=== PATIENT | male | born 1940 | race Caucasian/White ===

== ENCOUNTER 2017-04-21 06:48 | Day surgery (SDC) | payer MEDICARE, OTHER ==
[~2017-04-21] VITALS: Ht 172.7 cm; Wt 94.0 kg
[~2017-04-21 06:48] MED LIST: AMIO200 PO; ANTACID CALCIU215 MG PO; Afrin15 ML; Amiodarone HCl200 MG PO; Amoxicillin500 MG PO; Aspir 8181 MG PO; Ayr Saline Na14.1 GM; CALCA500CH PO; CLOP75 PO; ENTRESTO 24 MG1 EACH PO; FENO160 PO; FURO20 PO; Garlic1000 MG PO; K-TAB ER20 MEQ PO; LEVSOD100 PO; LEVSOD125 PO; LEVSOD150 PO; LEVSOD75 PO; LISI5 PO; LOSARTAN-HCTZ PO; MICROZIDE12.5 MG PO; Micro-K10 MEQ PO; NEBI10 PO; NEBI5 PO; NITR.4SL SL; OMEPRAZOLE MAGN20 MG PO; POTCHL20ER PO; TUMS DUAL ACTI1 EACH PO; VITAMIN C500 M1 PO; Vitamin C100 M1 PO; XARELTO10 MG PO; XARELTO15 MG PO
[2017-04-21] MEDS ORDERED: CEPH500 PO (13:25)
[2017-04-21] MEDS ORDERED: HYDR1TAB94 PO (13:26)
== END 2017-04-21 14:00 | disposition home or self-care (01) ==
LOC: MHTC 06:48
PROC: 0JPT0PZ Removal of Cardiac Rhythm Related Device from Trunk Subcutaneous Tissue and Fascia, Open Approach (ICD-10-PCS; principal; 2017-04-21)
PROC: 0JH608Z Insertion of Defibrillator Generator into Chest Subcutaneous Tissue and Fascia, Open Approach (ICD-10-PCS; principal; 2017-04-21)
PROC: 3E0102A Introduction of Anti-Infective Envelope into Subcutaneous Tissue, Open Approach (ICD-10-PCS; principal; 2017-04-21)
DX: I49.5 Sick sinus syndrome (principal); I42.0 Dilated cardiomyopathy; I44.7 Left bundle-branch block, unspecified; I11.0 Hypertensive heart disease with heart failure; I48.0 Paroxysmal atrial fibrillation; E03.9 Hypothyroidism, unspecified; G62.9 Polyneuropathy, unspecified; Z79.899 Other long term (current) drug therapy; Z79.01 Long term (current) use of anticoagulants; Z88.5 Allergy status to narcotic agent
CPT/HCPCS: 33249; 71046; 93005; 93010; 99152; 99153; C1721; C1781; C1895; J0690; J1200; J1644; J2250; J2405; J3010; J7030; J7040; Q9967

== ENCOUNTER 2018-06-08 14:12 | Day surgery (SDC) | payer MEDICARE, OTHER ==
[~2018-06-08] VITALS: Ht 172.7 cm; Wt 84.7 kg
[~2018-06-08 14:12] MED LIST changes: +CEPH500 PO; +HYDR1TAB94 PO
== END 2018-06-08 16:30 | disposition home or self-care (01) ==
LOC: ORSCSDS 14:12
PROVIDERS: Ophthalmology
PROC: 08RJ3JZ Replacement of Right Lens with Synthetic Substitute, Percutaneous Approach (ICD-10-PCS; principal; 2018-06-08 16:00)
DX: H25.11 Age-related nuclear cataract, right eye (principal); I10 Essential (primary) hypertension; Z79.82 Long term (current) use of aspirin; Z95.0 Presence of cardiac pacemaker; E78.5 Hyperlipidemia, unspecified; I48.0 Paroxysmal atrial fibrillation; E11.9 Type 2 diabetes mellitus without complications; F17.210 Nicotine dependence, cigarettes, uncomplicated; Z79.01 Long term (current) use of anticoagulants; Z79.899 Other long term (current) drug therapy
CPT/HCPCS: J2001; J2250; J3010; J7120; V2632

== ENCOUNTER 2018-07-06 14:03 | Day surgery (SDC) | payer MEDICARE, OTHER ==
[~2018-07-06] VITALS: Ht 167.6 cm; Wt 82.6 kg
== END 2018-07-06 15:30 | disposition home or self-care (01) ==
LOC: ORSCSDS 14:03
PROVIDERS: Ophthalmology
PROC: 08RK3JZ Replacement of Left Lens with Synthetic Substitute, Percutaneous Approach (ICD-10-PCS; principal; 2018-07-06 15:30)
DX: H25.12 Age-related nuclear cataract, left eye (principal); I10 Essential (primary) hypertension; E03.9 Hypothyroidism, unspecified; E78.00 Pure hypercholesterolemia, unspecified; E11.36 Type 2 diabetes mellitus with diabetic cataract; E78.5 Hyperlipidemia, unspecified; I25.10 Atherosclerotic heart disease of native coronary artery without angina pectoris; I48.0 Paroxysmal atrial fibrillation; I42.9 Cardiomyopathy, unspecified; Z95.0 Presence of cardiac pacemaker; Z79.01 Long term (current) use of anticoagulants; Z79.82 Long term (current) use of aspirin; Z79.899 Other long term (current) drug therapy
CPT/HCPCS: J2001; J2250; J3010; V2632

== ENCOUNTER → 2018-11-24 | Outpatient (CLI) | payer MEDICARE, OTHER | END | disposition home or self-care (01) | LOC: LAB SHORT 08:12 → LAB 08:12 → LAB FUT 11-23 16:45 | PROVIDERS: Internal Medicine Cardiovascular Disease | DX: I42.9 Cardiomyopathy, unspecified (principal) | CPT/HCPCS: 81050; 84156 ==

== ENCOUNTER 2019-03-08 10:08 | Emergency (ER) | payer MEDICARE, OTHER ==
[~2019-03-08] VITALS: Ht 175.3 cm; Wt 72.6 kg
[2019-03-08 10:39] LABS: BASOPHILS ABSOLUTE AUTO 0.04 K/mm3 (0.00-0.23); BASOPHILS PERCENT AUTO 1 % (0-2); EOSINOPHILS ABSOLUTE AUTO 0.17 K/mm3 (0.00-0.68); EOSINOPHILS PERCENT AUTO 3 % (0-6); Hematocrit 42.3 % (37.0-53.0); Hemoglobin 13.5 g/dL (13.5-17.5); IMMATURE GRAN ABSOLUTE AUTO 0.02 K/mm3 (0.00-0.10); IMMATURE GRAN PERCENT AUTO 0 % (0-1); LYMPHOCYTES ABSOLUTE AUTO 1.21 K/mm3 (0.84-5.20); LYMPHOCYTES PERCENT AUTO 19 % (21-46); MONOCYTES ABSOLUTE AUTO 0.43 K/mm3 (0.16-1.47); MONOCYTES PERCENT AUTO 7 % (4-13); Mean Corpuscular HGB Conc 31.9 g/dL (31.5-36.5); Mean Corpuscular Volume 97 fL (80-100); NEUTROPHILS ABSOLUTE AUTO 4.49 K/mm3 (1.96-9.15); NEUTROPHILS PERCENT AUTO 71 % (41-73); Platelet Count 175 K/mm3 (150-400); RDW Coefficient Variation 13.6 % (11.7-14.2); RDW Standard Deviation 49.1 fL (35.1-46.3); Red Blood Cell Count 4.36 M/mm3 (4.30-5.90); White Blood Cell Count 6.36 K/mm3 (4.00-11.30)
[2019-03-08 10:52] LABS: Alanine Aminotransfer (ALT/SGP 29 U/L (12-78); Albumin, Blood 3.3 g/dL (3.4-5.0); Alk Phos 111 U/L (50-136); Anion Gap 7 mmol/L (6-16); Aspartate Aminotrans (AST/SGOT 26 U/L (12-37); Bilirubin, Total 0.6 mg/dL (0.1-1.0); Blood Urea Nitrogen 28 mg/dL (8-24); Bun/Creatinine Ratio 28.5 (12.0-20.0); CO2, Blood 25 mmol/L (21-32); Calcium, Blood 8.6 mg/dL (8.5-10.1); Chloride, Blood 110 mmol/L (98-108); Creatinine, Blood 0.98 mg/dL (0.60-1.20); Globulin, Blood 3.4 g/dL (2.2-4.0); Glomerular Filtration Rate >60 (60-); Glucose, Blood 113 mg/dL (70-99); Potassium, Blood 4.2 mmol/L (3.5-5.5); Sodium, Blood 142 mmol/L (136-145); Total Protein, Blood 6.7 g/dL (6.4-8.2)
[2019-03-08] MEDS ORDERED: Percocet 5-3251 EACH PO (13:06)
[2019-03-09] MEDS ORDERED: XARELTO15 MG PO (15:42)
== END 2019-03-08 13:32 | disposition home or self-care (01) ==
LOC: ER 10:08
PROVIDERS: Emergency Medicine
DX: S22.32XA Fracture of one rib, left side, initial encounter for closed fracture (principal); S00.83XA Contusion of other part of head, initial encounter; I10 Essential (primary) hypertension; I20.9 Angina pectoris, unspecified; I48.91 Unspecified atrial fibrillation; Z88.5 Allergy status to narcotic agent; Z79.899 Other long term (current) drug therapy; Z79.82 Long term (current) use of aspirin; Z87.891 Personal history of nicotine dependence; W18.2XXA Fall in (into) shower or empty bathtub, initial encounter
CPT/HCPCS: 36415; 70450; 71046; 80053; 84484; 85025; 93005; 93010; 99285-25

== ENCOUNTER 2019-03-08 14:50 | Observation (INO) | payer MEDICARE, OTHER ==
[~2019-03-08] VITALS: Ht 167.6 cm; Wt 73.6 kg
[~2019-03-08 14:50] MED LIST changes: +Percocet 5-3251 EACH PO
[2019-03-09 04:13] LABS: BASOPHILS PERCENT AUTO 0 % (0-2); EOSINOPHILS PERCENT AUTO 0 % (0-6); Hematocrit 43.2 % (37.0-53.0); Hemoglobin 14.1 g/dL (13.5-17.5); IMMATURE GRAN ABSOLUTE AUTO 0.03 K/mm3 (0.00-0.10); IMMATURE GRAN PERCENT AUTO 0 % (0-1); LYMPHOCYTES ABSOLUTE AUTO 0.45 K/mm3 (0.84-5.20); LYMPHOCYTES PERCENT AUTO 4 % (21-46); MONOCYTES PERCENT AUTO 4 % (4-13); Mean Corpuscular HGB 30.9 pg (26.0-34.0); Mean Corpuscular HGB Conc 32.6 g/dL (31.5-36.5); Mean Corpuscular Volume 95 fL (80-100); Mean Platelet Volume 9.7 fL (9.1-12.4); NEUTROPHILS ABSOLUTE AUTO 10.38 K/mm3 (1.96-9.15); NEUTROPHILS PERCENT AUTO 92 % (41-73); Platelet Count 181 K/mm3 (150-400); RDW Coefficient Variation 13.8 % (11.7-14.2); RDW Standard Deviation 48.2 fL (35.1-46.3); Red Blood Cell Count 4.56 M/mm3 (4.30-5.90); White Blood Cell Count 11.26 K/mm3 (4.00-11.30)
[2019-03-09 04:29] LABS: Alanine Aminotransfer (ALT/SGP 41 U/L (12-78); Albumin, Blood 3.6 g/dL (3.4-5.0); Alk Phos 126 U/L (50-136); Anion Gap 7 mmol/L (6-16); Aspartate Aminotrans (AST/SGOT 36 U/L (12-37); Bilirubin, Total 0.7 mg/dL (0.1-1.0); Blood Urea Nitrogen 31 mg/dL (8-24); Bun/Creatinine Ratio 35.6 (12.0-20.0); CO2, Blood 26 mmol/L (21-32); Calcium, Blood 9.2 mg/dL (8.5-10.1); Chloride, Blood 109 mmol/L (98-108); Creatinine, Blood 0.87 mg/dL (0.60-1.20); Globulin, Blood 3.6 g/dL (2.2-4.0); Glomerular Filtration Rate >60 (60-); Glucose, Blood 139 mg/dL (70-99); Potassium, Blood 4.3 mmol/L (3.5-5.5); Sodium, Blood 142 mmol/L (136-145); Total Protein, Blood 7.2 g/dL (6.4-8.2)
--- NOTE | 2019-03-09 06:37 | NUR ---
received report from er via day nurse, fx rib, abrasion on L cheek/neck, scrape on L calf from fall, pt denies multiple falls at home confirms, when asked to raise arms for assessment only raises r arm, when asked to raise l arm he does raise it and denies pain or numbness, slight droop to l side of face and slurred, soft, speech, both eyes are brisk and equal, moves both legs equally well, self transfered from gurney to bed with only standby assist, currently on 2L via nc, both IV's saline locked, family in room, a+o, cooperative with care, no further s/sx of cva noted during shift, will continue to monitor and treat until share bsr with day staff and pt
--- NOTE | 2019-03-09 12:55 | NUR ---
UPDATE PT ALERT AND ORIENTED. VS STABLE. O2 SATS REMAIN ABOVE 90% ON 2L NC. BP STABLE. TELEMETRY HAS BEEN DC'D. PT WORKING [facility] PT/OT/ST. STATUS CHANGED TO MEDICAL. REPORT CALLED TO MEDICAL FLOOR RN. PT TO BE TAKEN UP BY WHEELCHAIR.
[2019-03-09] MEDS ORDERED: XARELTO15 MG PO (15:42)
--- NOTE | 2019-03-09 16:46 | NUR ---
PATIENT WAS TRANSFERRED OFF THE UNIT IN A WHEELCHAIR BY THE RN. THE PATIENT'S AND FAMILY FRIEND PICKED UP THE PATIENT AT THE ER ENTERANCE IN THEIR VEHICLE.
== END 2019-03-09 16:22 | disposition home health service (06) ==
LOC: ER 14:50 → PCU 18:58 → MEDS 18:58 → PCU 18:58 → MEDS 03-09 13:02
PROVIDERS: ADMIT Internal Medicine
DX: I63.9 Cerebral infarction, unspecified (principal); G81.04 Flaccid hemiplegia affecting left nondominant side; R29.810 Facial weakness; R47.9 Unspecified speech disturbances; S22.32XA Fracture of one rib, left side, initial encounter for closed fracture; I11.0 Hypertensive heart disease with heart failure; I50.22 Chronic systolic (congestive) heart failure; M19.90 Unspecified osteoarthritis, unspecified site; E78.5 Hyperlipidemia, unspecified; I48.0 Paroxysmal atrial fibrillation; E03.9 Hypothyroidism, unspecified; D47.2 Monoclonal gammopathy; Z98.1 Arthrodesis status; Z95.810 Presence of automatic (implantable) cardiac defibrillator; Z79.02 Long term (current) use of antithrombotics/antiplatelets; Z79.82 Long term (current) use of aspirin; Z79.01 Long term (current) use of anticoagulants; Z79.899 Other long term (current) drug therapy; Z88.5 Allergy status to narcotic agent; Z87.891 Personal history of nicotine dependence; Z66 Do not resuscitate; W01.0XXA Fall on same level from slipping, tripping and stumbling without subsequent striking against object, initial encounter; Y92.012 Bathroom of single-family (private) house as the place of occurrence of the external cause
CPT/HCPCS: 36415; 70496; 70498; 80053; 85025; 92610; 96374; 96375; 96376; 97110; 97116; 97163; 97166; 99285-25; C9113; G0378; J1170; J1644; J2405; J3010; Q9967

== ENCOUNTER 2019-03-20 16:14 | Emergency (ER) | payer MEDICARE, OTHER ==
[~2019-03-20] VITALS: Ht 172.7 cm; Wt 70.3 kg
[2019-03-20 16:38] LABS: BASOPHILS ABSOLUTE AUTO 0.03 K/mm3 (0.00-0.23); BASOPHILS PERCENT AUTO 0 % (0-2); EOSINOPHILS ABSOLUTE AUTO 0.03 K/mm3 (0.00-0.68); EOSINOPHILS PERCENT AUTO 0 % (0-6); Hematocrit 42.7 % (37.0-53.0); Hemoglobin 14.2 g/dL (13.5-17.5); IMMATURE GRAN ABSOLUTE AUTO 0.04 K/mm3 (0.00-0.10); IMMATURE GRAN PERCENT AUTO 1 % (0-1); LYMPHOCYTES ABSOLUTE AUTO 1.08 K/mm3 (0.84-5.20); LYMPHOCYTES PERCENT AUTO 13 % (21-46); MONOCYTES ABSOLUTE AUTO 0.44 K/mm3 (0.16-1.47); MONOCYTES PERCENT AUTO 5 % (4-13); Mean Corpuscular HGB 31.2 pg (26.0-34.0); Mean Corpuscular HGB Conc 33.3 g/dL (31.5-36.5); Mean Corpuscular Volume 94 fL (80-100); Mean Platelet Volume 9.9 fL (9.1-12.4); NEUTROPHILS ABSOLUTE AUTO 6.88 K/mm3 (1.96-9.15); NEUTROPHILS PERCENT AUTO 81 % (41-73); Platelet Count 237 K/mm3 (150-400); RDW Coefficient Variation 13.5 % (11.7-14.2); RDW Standard Deviation 46.6 fL (35.1-46.3); Red Blood Cell Count 4.55 M/mm3 (4.30-5.90)
[2019-03-20 17:00] LABS: Albumin, Blood 3.5 g/dL (3.4-5.0); Albumin/Globulin Ratio 1.1 (0.8-1.8); Bilirubin, Total 0.7 mg/dL (0.1-1.0); Bun/Creatinine Ratio 26.5 (12.0-20.0); Calcium, Blood 9.4 mg/dL (8.5-10.1); Creatinine, Blood 1.7 mg/dL (0.60-1.20); Globulin, Blood 3.3 g/dL (2.2-4.0); Total Protein, Blood 6.8 g/dL (6.4-8.2)
[2019-03-20 17:33] LABS: Troponin I <0.015 ng/mL (0.000-0.040)
[2019-03-20] MEDS ORDERED: CLOP75 PO (18:12)
[2019-03-20] MEDS ORDERED: ASPI81CH PO (18:12)
[2019-03-20 18:34] LABS: Source, Urine Voided
[2019-03-20 18:36] LABS: Appearance, Urine Clear (Clear); Bilirubin, Urine Neg (Neg); Blood, Urine Neg (Neg); Color, Urine Yellow (P-Yellow); Glucose Qualitative, Urine Neg (Neg); Ketones, Urine 1+ (Neg); Leukocyte Esterase, Urine Neg (Neg); Nitrite, Urine Neg (Neg); Protein, Urine 1+ (Neg); Specific Gravity, Urine 1.015 (1.003-1.022); Urobilinogen, Urine NORM (Normal)
[2019-03-20] MEDS ORDERED: Cardizem CD 12120 MG PO (19:09)
== END 2019-03-20 19:45 | disposition home or self-care (01) ==
LOC: ER 16:14
PROVIDERS: Emergency Medicine
DX: I48.91 Unspecified atrial fibrillation (principal); Z88.5 Allergy status to narcotic agent; Z79.899 Other long term (current) drug therapy; I10 Essential (primary) hypertension; Z86.73 Personal history of transient ischemic attack (TIA), and cerebral infarction without residual deficits; Z87.891 Personal history of nicotine dependence
CPT/HCPCS: 70450; 80053; 84443; 84484; 85025; 93005; 93010; 96374; 99284-25

== ENCOUNTER 2019-08-09 14:57 | Inpatient (IN) | payer MEDICARE, OTHER ==
[~2019-08-09] VITALS: Ht 172.7 cm; Wt 80.0 kg
[~2019-08-09 14:57] MED LIST changes: +ASPI81CH PO; +Cardizem CD 12120 MG PO; -ENTRESTO 24 MG1 EACH PO; -K-TAB ER20 MEQ PO; -LEVSOD100 PO; -OMEPRAZOLE MAGN20 MG PO
[2019-08-09] MEDS ORDERED: OMEPRAZOLE MAGN20 MG PO (16:59)
[2019-08-09] MEDS ORDERED: LEVSOD100 PO (17:00)
[2019-08-09] MEDS ORDERED: POTA10T PO (17:00)
[2019-08-09] MEDS ORDERED: XARELTO15 MG PO (17:01)
[2019-08-09] MEDS ORDERED: LEVSOD150 PO (17:02)
[2019-08-09] MEDS ORDERED: NITR.4SL SL (17:03)
[2019-08-09] MEDS ORDERED: Bystolic2.5 MG PO (17:16)
[2019-08-09] MEDS ORDERED: ENTRESTO 49 MG1 EACH PO (17:18)
[2019-08-09] MEDS ORDERED: TUMS500 MG PO (17:49)
--- NOTE | 2019-08-10 00:24 | NUR ---
CHANGE IN RHYTHM MANAGER PROCESS IMPROVEMENT CALLED STATED PT HAVING MORE FREQUENT PVCS, TRIGEM, AND BIGEM WITH FEW BEAT RUN OF VTACH. PT WAS SLEEPING, WAKES EASILY CHECKED VS AND PT IS FEBRILE. DENIES ANY CHEST PAIN BUT STATES HAVING CHILLS. MEDICATED WITH TYLENOL. CALLED MUNA-SHE STATES WILL PUT IN ORDERS FOR BLOOD CX, LACTIC AND POSSIBLE ABX.
[2019-08-10 01:30] LABS: BASOPHILS ABSOLUTE AUTO 0.02 K/mm3 (0.00-0.23); BASOPHILS PERCENT AUTO 0 % (0-2); EOSINOPHILS ABSOLUTE AUTO 0.01 K/mm3 (0.00-0.68); EOSINOPHILS PERCENT AUTO 0 % (0-6); Hematocrit 45.2 % (37.0-53.0); Hemoglobin 14.6 g/dL (13.5-17.5); IMMATURE GRAN ABSOLUTE AUTO 0.05 K/mm3 (0.00-0.10); IMMATURE GRAN PERCENT AUTO 0 % (0-1); LYMPHOCYTES ABSOLUTE AUTO 0.48 K/mm3 (0.84-5.20); LYMPHOCYTES PERCENT AUTO 4 % (21-46); MONOCYTES ABSOLUTE AUTO 0.15 K/mm3 (0.16-1.47); MONOCYTES PERCENT AUTO 1 % (4-13); Mean Corpuscular HGB 30.9 pg (26.0-34.0); Mean Corpuscular HGB Conc 32.3 g/dL (31.5-36.5); Mean Corpuscular Volume 96 fL (80-100); Mean Platelet Volume 9.7 fL (9.1-12.4); NEUTROPHILS ABSOLUTE AUTO 10.78 K/mm3 (1.96-9.15); NEUTROPHILS PERCENT AUTO 94 % (41-73); Platelet Count 157 K/mm3 (150-400); RDW Coefficient Variation 13.6 % (11.7-14.2); RDW Standard Deviation 47.9 fL (35.1-46.3); Red Blood Cell Count 4.73 M/mm3 (4.30-5.90); White Blood Cell Count 11.49 K/mm3 (4.00-11.30)
[2019-08-10 01:47] LABS: Anion Gap 3 mmol/L (6-16); Blood Urea Nitrogen 17 mg/dL (8-24); Bun/Creatinine Ratio 19.1 (12.0-20.0); CO2, Blood 28 mmol/L (21-32); Calcium, Blood 8.6 mg/dL (8.5-10.1); Chloride, Blood 107 mmol/L (98-108); Creatinine, Blood 0.89 mg/dL (0.60-1.20); Glomerular Filtration Rate >60 (60-); Glucose, Blood 113 mg/dL (70-99); Potassium, Blood 4.4 mmol/L (3.5-5.5); Sodium, Blood 138 mmol/L (136-145)
--- NOTE | 2019-08-10 01:54 | NUR ---
RHYTHM COATING MIXER SUPERVISOR CALLED STAT[facility] HAVING A WIDE QRS AND CONT TO HAVE FREQ PVC'S. PT IS SLEEPING, EASY TO WAKE, STATES FEELING WARM NOW, T-101.9. WAITING FOR LACTIC RESULTS AND WILL CALL DR. DANIELSON.
[2019-08-10 02:07] LABS: Magnesium, Blood 1.8 mg/dL (1.6-2.4)
--- NOTE | 2019-08-10 02:08 | NUR ---
SPOKE WITH , STARTED ABX AND ADDED MAG. ASSEMBLER SHOW MOTOR DID CALL AND STATE SOME OF THE ODD RHYTHMS WERE PACER SPIKES.
--- NOTE | 2019-08-10 02:35 | NUR ---
PT HAD AN EPISODE OF CONFUSION. PULLED OFF TELE AND FOLDING HIS BLANKETS. BUT STATES HE IS NOW ORIENTED AND KNOWS WHERE HE IS. STATES FEELING BETTER T99.5. WILL PLACE BED ALARM ON. IV ABX STARTED.
--- NOTE | 2019-08-10 03:35 | NUR ---
PT WAS A NEW ADMIT AT BEGINNING OF MY SHIFT. PT SPIKED TEMP AND HAD CRITICAL LACTIC, ALSO WITH FREQUENT PVC'S. DURING THIS TIME PT BECAME CONFUSED. PT NOW IS ORIENTED AND KNOWS HE WAS CONFUSED. PT WAS STARTED ON IV ABX. PLAN FOR SX ON TUESDAY FOR MIKY CARTER. BED ALARM IS ON, CALL LIGHT IN REACH. WILL CONT TO MONITOR FOR CONFUSION.
--- NOTE | 2019-08-10 07:36 | NUR ---
SPOKE WITH DR KENDRICK RE: PT CONDITION. RECD ORDER TO GIVE COREG, IV BOLUS AND LACTIC ACID.
--- NOTE | 2019-08-10 08:56 | NUR ---
BOLUS COMPLETED. SR @ 71. BP IMPROVED. NO C/O.
--- NOTE | 2019-08-10 13:44 | NUR ---
DR KENDRICK REVIEWED PATIENTS TELE STATUS, HE LEFT MESSAGE FOR CARDIOLOGY CONSULT. PATIENT BP STABLE, ASYMPTOMATIC. DENIES SOB, CP,CHANGES.
--- NOTE | 2019-08-10 18:20 | NUR ---
NOTIFIED BY LACE PAPER MACHINE OPERATOR, PT IN AFIB. ASYMPTOMATIC. DR KENDRICK NOTIFIED, NO NEW ORDERS. PATIENT TOLERATING DIET W/O C/O NAUSEA OR PAIN. VOIDING. CARDIOLOGY IN TO SEE. PLAN FOR OC TO OR TOMORROW,
--- NOTE | 2019-08-10 23:10 | NUR ---
PT'S NOW IN AFIB WITH HR IN 120'S, PER GLOBAL TECHNICAL WRITER. [facility] NOTIFIED; NEW ORDERS FOR 500MG LR BOLUS OBTAINED. MUNA ALSO NOTIFIED OF RECENT GRAM POSITIVE LAB RESULTS; NO NEW ORDERS CURRENT ABX IS APPROPRIATE. PT DENIES CP, SOB, OR N/V. TEMP HAS DECREASED TO 99.5, PT DENIES CHILLS. REPORTS RESTING COMFORTABLY. HAS CALL LIGHT IN REACH. WILL IMPLEMENT ORDERS AND CTM.
--- NOTE | 2019-08-10 23:22 | NUR ---
PT NOW IN NSR WITH HR AT 65 BPM, PER FOLDER AND NOTCHER. MARCIA TORO NOTIFIED. NEW ORDERS TO HOLD 500ML LR BOLUS OBTAINED, OKAY TO MAKE PRN. WILL IMPLEMENT AND CTM.
--- NOTE | 2019-08-11 04:24 | NUR ---
AFIB CHANGE PER MANAGER CABLE, PT IS NOW IN AFIB WITH HR IN 120'S. DR. TYLER NOTIFIED; NEW ORDERS FOR 5MG IV LOPRESSOR OBTAINED. PT APPEARS TO BE SLEEPING COMFORTABLY IN BED AT THIS TIME. RECENT VITALS ARE BP 113/67, SPO2 AT 94% ON RA, 12 RESP, AND T- 99.4. WILL IMPLEMENT ORDERS AND CTM.
[2019-08-11 04:43] LABS: BASOPHILS ABSOLUTE AUTO 0.05 K/mm3 (0.00-0.23); BASOPHILS PERCENT AUTO 0 % (0-2); EOSINOPHILS ABSOLUTE AUTO 0.03 K/mm3 (0.00-0.68); EOSINOPHILS PERCENT AUTO 0 % (0-6); Hematocrit 42.2 % (37.0-53.0); Hemoglobin 13.6 g/dL (13.5-17.5); IMMATURE GRAN ABSOLUTE AUTO 0.11 K/mm3 (0.00-0.10); IMMATURE GRAN PERCENT AUTO 1 % (0-1); LYMPHOCYTES ABSOLUTE AUTO 0.72 K/mm3 (0.84-5.20); LYMPHOCYTES PERCENT AUTO 6 % (21-46); MONOCYTES ABSOLUTE AUTO 0.97 K/mm3 (0.16-1.47); MONOCYTES PERCENT AUTO 8 % (4-13); Mean Corpuscular HGB 30.5 pg (26.0-34.0); Mean Corpuscular HGB Conc 32.2 g/dL (31.5-36.5); Mean Corpuscular Volume 95 fL (80-100); Mean Platelet Volume 9.8 fL (9.1-12.4); NEUTROPHILS ABSOLUTE AUTO 10.81 K/mm3 (1.96-9.15); NEUTROPHILS PERCENT AUTO 85 % (41-73); Platelet Count 140 K/mm3 (150-400); RDW Coefficient Variation 13.7 % (11.7-14.2); RDW Standard Deviation 48.1 fL (35.1-46.3); Red Blood Cell Count 4.46 M/mm3 (4.30-5.90); White Blood Cell Count 12.69 K/mm3 (4.00-11.30)
[2019-08-11 04:59] LABS: Anion Gap 3 mmol/L (6-16); Blood Urea Nitrogen 18 mg/dL (8-24); Bun/Creatinine Ratio 19.4 (12.0-20.0); CO2, Blood 27 mmol/L (21-32); Calcium, Blood 8.2 mg/dL (8.5-10.1); Chloride, Blood 108 mmol/L (98-108); Creatinine, Blood 0.93 mg/dL (0.60-1.20); Glomerular Filtration Rate >60 (60-); Glucose, Blood 97 mg/dL (70-99); Potassium, Blood 4.2 mmol/L (3.5-5.5); Sodium, Blood 138 mmol/L (136-145)
--- NOTE | 2019-08-11 05:39 | NUR ---
JAGJIT NOTIFIED OF HR IN 110'S AFTER ADMINISTRATION OF IV LOPRESSOR. NO NEW ORDERS AT THIS TIME.
--- NOTE | 2019-08-11 05:43 | NUR ---
SHIFT SUMMARY PT A/OX4, IN AFIB WITH HR IN 110'S- PER CRANE OPERATOR. DR. TYLER AWARE, PT ASYMPTOMATIC. DENIED PAIN OR ANY DISCOMFORT T/O SHIFT. STATES HE "SLEPT REALLY WELL." ABX AND IVF INFUSED PER ORDERS. NPO SINCE MIDNIGHT. VOIDING AND PASSING FLATUS. IS CURRENTLY RESTING IN BED WITH CALL LIGHT IN REACH. PLAN FOR SURGERY TODAY. WILL CONT TO MONITOR AND GIVE REPORT TO ONCOMING RN.
--- NOTE | 2019-08-11 07:14 | NUR ---
ASSUMED PATIENT CARE. PATIENT RESTING COMFORTABLY IN BED, CONVERSING WITH NURSING STAFF. NO SIGNS OF ACUTE DISTRESS, WCTM.
--- NOTE | 2019-08-11 18:58 | NUR ---
RELINQUISHED PATIENT CARE.
--- NOTE | 2019-08-11 19:41 | NUR ---
[facility] BEDSIDE REPORT REC FROM TWAN Osei RN. PT A/O X2-3. LUNGS CLEAR, 3LO2 NC IN [place], PLAN TO TITRATE PT OSKAR. INCISION CDI. PT ORIENTED TO ROOM/CALL LIGHT, BED ALARM ON. WILL MONITOR AND TXPER ORDERS.
[2019-08-12 04:17] LABS: BASOPHILS ABSOLUTE AUTO 0.01 K/mm3 (0.00-0.23); BASOPHILS PERCENT AUTO 0 % (0-2); EOSINOPHILS PERCENT AUTO 0 % (0-6); Hematocrit 42.4 % (37.0-53.0); Hemoglobin 13.7 g/dL (13.5-17.5); IMMATURE GRAN ABSOLUTE AUTO 0.03 K/mm3 (0.00-0.10); IMMATURE GRAN PERCENT AUTO 0 % (0-1); LYMPHOCYTES ABSOLUTE AUTO 0.26 K/mm3 (0.84-5.20); LYMPHOCYTES PERCENT AUTO 3 % (21-46); MONOCYTES ABSOLUTE AUTO 0.33 K/mm3 (0.16-1.47); MONOCYTES PERCENT AUTO 3 % (4-13); Mean Corpuscular HGB 31.1 pg (26.0-34.0); Mean Corpuscular HGB Conc 32.3 g/dL (31.5-36.5); Mean Corpuscular Volume 96 fL (80-100); Mean Platelet Volume 10.1 fL (9.1-12.4); NEUTROPHILS ABSOLUTE AUTO 9.44 K/mm3 (1.96-9.15); NEUTROPHILS PERCENT AUTO 94 % (41-73); Platelet Count 150 K/mm3 (150-400); RDW Coefficient Variation 13.7 % (11.7-14.2); RDW Standard Deviation 49.1 fL (35.1-46.3); Red Blood Cell Count 4.41 M/mm3 (4.30-5.90); White Blood Cell Count 10.07 K/mm3 (4.00-11.30)
[2019-08-12 04:37] LABS: Anion Gap 4 mmol/L (6-16); Blood Urea Nitrogen 24 mg/dL (8-24); Bun/Creatinine Ratio 25.9 (12.0-20.0); CO2, Blood 25 mmol/L (21-32); Calcium, Blood 7.9 mg/dL (8.5-10.1); Chloride, Blood 108 mmol/L (98-108); Creatinine, Blood 0.93 mg/dL (0.60-1.20); Glomerular Filtration Rate >60 (60-); Glucose, Blood 183 mg/dL (70-99); Potassium, Blood 4.5 mmol/L (3.5-5.5); Sodium, Blood 137 mmol/L (136-145)
--- NOTE | 2019-08-12 07:25 | NUR ---
POD 1 S/P LAP RAUL. PT VSS, HR AFIB 90-100 PER TELE MONITOR. PT DENIED CP/PRESSURE. SATS >90% ON RA. DRESSINGS CDI. PAIN MGD W/TYLENOL W/REP RELIEF. PT OSKAR CL PO+CRACKERS, NO N/V, PT REP NO FLATUS YET. URINE DARK YELLOW, IVF CONT PER ORDERS. PT MORE ALERT THIS AM, A/O X4, IS USING CALL LIGHT FOR ASSISTANCE, BED ALARM ON FOR SAFETY. REPORT GIVEN TO DAY RN.
--- NOTE | 2019-08-12 08:21 | NUR ---
DENIES ANY PAIN OR NAUSEA, REPORTS TOLERATED CLEAR LIQUIDS WELL, PT ON REGULAR DIET THIS AM, MONITOR FOR ANY CHANGES, MEDICATE FOR PAIN PRN, OOB BED, AMBULATE.
--- NOTE | 2019-08-13 07:35 | NUR ---
POD 1 S/P LAP RAUL. PT VSS T/O NIGHT, HR AFIB 90'S PER TELE MONITOR. DRESSINGS CDI. PAIN MGD W/PO PAIN MEDS W/REP RELIEF. PT OSKAR REG PO, NO N/V, REP +FLATUS, IS VOIDING URINE W/O DIFFICULTY. PT USING CALL LIGHT FOR ASSISTANCE, BEDSIDE REPORT GIVEN TO DAY RN.
--- NOTE | 2019-08-13 10:31 | NUR ---
UPDATED SON SERAFIN, ON CONDITION
--- NOTE | 2019-08-13 11:41 | NUR ---
REVIEW D'C W/SON AND PATIENT. AWARE TO OPTICAL MECHANIC APPRENTICE 3 RX'S AT [facility]. AWARE TO LEAVE STERI STRIPS ON AND LET THEM FALL OFF. OFFICE WILL CALL TO SET UP F/U APPT. ANSWER ALL QUESTIONS. REVIEW REASONS TO CALL MD. IN W/C TO POV
== END 2019-08-13 10:00 | disposition home or self-care (01) | DRG 854 ==
LOC: ER 14:57 → SURS 18:05
PROVIDERS: Surgery; ADMIT Internal Medicine
PROC: 0FT44ZZ Resection of Gallbladder, Percutaneous Endoscopic Approach (ICD-10-PCS; principal; 2019-08-11 19:15)
DX: A41.9 Sepsis, unspecified organism (principal); K80.00 Calculus of gallbladder with acute cholecystitis without obstruction; I48.20 Chronic atrial fibrillation, unspecified; I13.0 Hypertensive heart and chronic kidney disease with heart failure and stage 1 through stage 4 chronic kidney disease, or unspecified chronic kidney disease; I50.22 Chronic systolic (congestive) heart failure; R65.20 Severe sepsis without septic shock; I20.9 Angina pectoris, unspecified; I25.5 Ischemic cardiomyopathy; I44.7 Left bundle-branch block, unspecified; Z66 Do not resuscitate; E03.9 Hypothyroidism, unspecified; E78.5 Hyperlipidemia, unspecified; M19.90 Unspecified osteoarthritis, unspecified site; Z86.73 Personal history of transient ischemic attack (TIA), and cerebral infarction without residual deficits; Z95.5 Presence of coronary angioplasty implant and graft; Z95.0 Presence of cardiac pacemaker; Z87.891 Personal history of nicotine dependence; Z79.01 Long term (current) use of anticoagulants
CPT/HCPCS: 36415; 71046; 80048; 83605; 83735; 85025; 87040; 87184; 88304; 93005; 93010; 96365; 99285-25; A9270; A9270-GY; J0295; J1100; J1885; J2250; J2405; J2543; J2704; J3010; J7120; U0002

== ENCOUNTER 2022-02-02 19:15 | Emergency (ER) | payer MEDICARE, OTHER ==
[~2022-02-02] VITALS: Ht 177.8 cm; Wt 68.0 kg
[~2022-02-02 19:15] MED LIST changes: +Bystolic2.5 MG PO; +ENTRESTO 49 MG1 EACH PO; +LEVSOD100 PO; +OMEPRAZOLE MAGN20 MG PO; +POTA10T PO; +TUMS500 MG PO
== END 2022-02-02 22:01 | disposition home or self-care (01) ==
LOC: ER 19:15
DX: R04.0 Epistaxis (principal); I10 Essential (primary) hypertension; Z79.890 Hormone replacement therapy; Z79.02 Long term (current) use of antithrombotics/antiplatelets; Z79.899 Other long term (current) drug therapy; Z88.5 Allergy status to narcotic agent; Z95.0 Presence of cardiac pacemaker; Z95.5 Presence of coronary angioplasty implant and graft; Z87.891 Personal history of nicotine dependence
CPT/HCPCS: 30903; 99283-25

== ENCOUNTER 2022-04-29 13:03 | Inpatient (IN) | payer MEDICARE, OTHER ==
[~2022-04-29] VITALS: Ht 167.6 cm; Wt 83.7 kg
[2022-04-29 13:50] LABS: BASOPHILS ABSOLUTE AUTO 0.02 K/mm3 (0.00-0.23); BASOPHILS PERCENT AUTO 0 % (0-2); EOSINOPHILS ABSOLUTE AUTO 0.01 K/mm3 (0.00-0.68); EOSINOPHILS PERCENT AUTO 0 % (0-6); Hematocrit 38.6 % (37.0-53.0); IMMATURE GRAN ABSOLUTE AUTO 0.06 K/mm3 (0.00-0.10); IMMATURE GRAN PERCENT AUTO 1 % (0-1); LYMPHOCYTES ABSOLUTE AUTO 0.88 K/mm3 (0.84-5.20); LYMPHOCYTES PERCENT AUTO 11 % (21-46); MONOCYTES ABSOLUTE AUTO 0.49 K/mm3 (0.16-1.47); MONOCYTES PERCENT AUTO 6 % (4-13); Mean Corpuscular HGB 33.1 pg (26.0-34.0); Mean Corpuscular HGB Conc 33.7 g/dL (31.5-36.5); Mean Corpuscular Volume 98 fL (80-100); Mean Platelet Volume 10.9 fL (9.1-12.4); NEUTROPHILS ABSOLUTE AUTO 6.83 K/mm3 (1.96-9.15); NEUTROPHILS PERCENT AUTO 83 % (41-73); Platelet Count 177 K/mm3 (150-400); RDW Standard Deviation 54.3 fL (35.1-46.3); Red Blood Cell Count 3.93 M/mm3 (4.30-5.90); White Blood Cell Count 8.29 K/mm3 (4.00-11.30)
[2022-04-29] MEDS ORDERED: SPIRONOLACTONE25 MG PO (14:18)
[2022-04-29] MEDS ORDERED: ATOR40TA PO (14:19)
[2022-04-29] MEDS ORDERED: SOAANZ20 M3 PO (14:20)
[2022-04-29] MEDS ORDERED: ISOSORBIDE MONO30 MG PO (14:21)
[2022-04-29] MEDS ORDERED: Amiodarone HCl200 MG PO (14:22)
[2022-04-29] MEDS ORDERED: TAMSULOSIN HCL0.4 M1 PO (14:22)
[2022-04-29] MEDS ORDERED: JARDIANCE10 MG PO (14:23)
[2022-04-29 14:45] LABS: Calcium, Ionized (POC) 1.03 mmol/L (1.10-1.46); Chloride (POC) 101 mmol/L (98-108); Creatinine (POC) 3.1 mg/dL (0.8-1.3); Glucose (ISTAT POC) 108 mg/dL (70-99); Hemoglobin (POC) 14.6 g/dL (13.5-17.5); Potassium (POC) 4.1 mmol/L (3.5-5.5); Sodium (POC) 134 mmol/L (135-148); Total CO2 (POC) 20 mmol/L (21-32)
[2022-04-29 15:09] LABS: Albumin, Blood 3.7 g/dL (3.4-5.0); Albumin/Globulin Ratio 1.2 (0.8-1.8); Bilirubin, Total 2.1 mg/dL (0.1-1.0); Bun/Creatinine Ratio 25.3 (12.0-20.0); Calcium, Blood 9.3 mg/dL (8.5-10.1); Creatinine, Blood 3.16 mg/dL (0.60-1.20); Globulin, Blood 3.1 g/dL (2.2-4.0); Potassium, Blood 4.5 mmol/L (3.5-5.5); Total Protein, Blood 6.8 g/dL (6.4-8.2)
[2022-04-29] MEDS ORDERED: NEBI5 PO (15:14)
--- NOTE | 2022-04-29 19:15 | NUR ---
ADMIT 1845 PT ADMITTED FROM ER. RECEIVED REPORT FROM RERE FITCH. PT IS ALERT AND ORIENTED X4, STANDBY ASSIST FOR NOW. R/A. NO COMPLAINTS OF PAIN.
[2022-04-30 05:59] LABS: BASOPHILS ABSOLUTE AUTO 0.03 K/mm3 (0.00-0.23); BASOPHILS PERCENT AUTO 0 % (0-2); EOSINOPHILS ABSOLUTE AUTO 0.03 K/mm3 (0.00-0.68); EOSINOPHILS PERCENT AUTO 0 % (0-6); Hematocrit 36.8 % (37.0-53.0); Hemoglobin 12.7 g/dL (13.5-17.5); IMMATURE GRAN ABSOLUTE AUTO 0.03 K/mm3 (0.00-0.10); IMMATURE GRAN PERCENT AUTO 0 % (0-1); LYMPHOCYTES ABSOLUTE AUTO 1.01 K/mm3 (0.84-5.20); LYMPHOCYTES PERCENT AUTO 15 % (21-46); MONOCYTES ABSOLUTE AUTO 0.36 K/mm3 (0.16-1.47); MONOCYTES PERCENT AUTO 5 % (4-13); Mean Corpuscular HGB 32.7 pg (26.0-34.0); Mean Corpuscular HGB Conc 34.5 g/dL (31.5-36.5); Mean Corpuscular Volume 95 fL (80-100); Mean Platelet Volume 11.7 fL (9.1-12.4); NEUTROPHILS ABSOLUTE AUTO 5.39 K/mm3 (1.96-9.15); NEUTROPHILS PERCENT AUTO 79 % (41-73); Platelet Count 174 K/mm3 (150-400); RDW Standard Deviation 51.8 fL (35.1-46.3); Red Blood Cell Count 3.88 M/mm3 (4.30-5.90); White Blood Cell Count 6.85 K/mm3 (4.00-11.30)
[2022-04-30 06:27] LABS: Albumin, Blood 3.3 g/dL (3.4-5.0); Albumin/Globulin Ratio 1.2 (0.8-1.8); Bilirubin, Total 2.3 mg/dL (0.1-1.0); Bun/Creatinine Ratio 26.6 (12.0-20.0); Calcium, Blood 9.2 mg/dL (8.5-10.1); Creatinine, Blood 2.89 mg/dL (0.60-1.20); Globulin, Blood 2.8 g/dL (2.2-4.0); Magnesium, Blood 2.9 mg/dL (1.6-2.4); Potassium, Blood 4.1 mmol/L (3.5-5.5); Total Protein, Blood 6.1 g/dL (6.4-8.2)
--- NOTE | 2022-04-30 06:48 | NUR ---
GOLF CLUB FACER SUMMARY: A&Ox3-4 REQUIRING SOME REORIENTING REGARDING TELE, CONTINUOUS BIOX AND URINAL IN ROOM; FORGETS HOW TO USE THEM OR WHAT TO DO WITH THEM WHEN GETTING UP TO USE THE BATHROOM. PLEASANT AND COOPERATIVE WITH CARE. CALLS APPROPRIATELY AND IS ABLE TO COMMUNICATE NEEDS EFFECTIVELY. TELE IN PLACE; AFIB @ 77; DOES HAVE PACEMAKER FOR Hx SICK SINUS SYNDROME. ORDERS FOR DAILY WEIGHTS AND STRICT Is & Os. RENAL U/S DONE LAST NIGHT NEEDS TO BE READ TODAY. NEED URINE FOR RANDOM CREAT AND NITROGEN AND OUTPUT, BUT PT KEPT EMPTYING CONTAINMENT DEVICE IN TOILET. LABS DRAWN THIS AM; NO CRITICAL RESULTS RECEIVED AT THIS TIME. WILL REPORT TO ONCOMING RN.
--- NOTE | 2022-04-30 17:10 | NUR ---
SHIFT SUMMARY- PT IS ALERT AND ORIENTED X4. CALLS FOR ASSISTANCE IF NEEDED. PT STATES THAT HE IS RESTING IN BED COMFORTABLY AND CAN POSITION SELF. SUPPORT WITH PILLOWS ADDED UNDER EXTREMETIES. STRICT I&OS. SON HAS BEEN AT BEDSIDE INTERMITTENLY THROUGHOUT DAY. PT STATED THAT HE MAY BE UPDATING HIS CODE STATUS PENDING A CONVERSATION WITH HIS SONS. NOTIFIED.
[2022-05-01 06:08] LABS: Hematocrit 38.3 % (37.0-53.0); Hemoglobin 12.8 g/dL (13.5-17.5); Mean Corpuscular HGB 32.5 pg (26.0-34.0); Mean Corpuscular HGB Conc 33.4 g/dL (31.5-36.5); Mean Corpuscular Volume 97 fL (80-100); Mean Platelet Volume 11.4 fL (9.1-12.4); Platelet Count 162 K/mm3 (150-400); RDW Coefficient Variation 15.1 % (11.7-14.2); RDW Standard Deviation 54.4 fL (35.1-46.3); Red Blood Cell Count 3.94 M/mm3 (4.30-5.90); White Blood Cell Count 6.61 K/mm3 (4.00-11.30)
[2022-05-01 06:56] LABS: Albumin, Blood 3.2 g/dL (3.4-5.0); Albumin/Globulin Ratio 1.1 (0.8-1.8); Bilirubin, Total 2.7 mg/dL (0.1-1.0); Bun/Creatinine Ratio 27.6 (12.0-20.0); Calcium, Blood 9.3 mg/dL (8.5-10.1); Creatinine, Blood 2.9 mg/dL (0.60-1.20); Magnesium, Blood 2.9 mg/dL (1.6-2.4); Phosphorus, Blood 3.9 mg/dL (2.5-4.9); Potassium, Blood 4.2 mmol/L (3.5-5.5); Total Protein, Blood 6.2 g/dL (6.4-8.2)
--- NOTE | 2022-05-01 07:34 | NUR ---
CT TECH SUMMARY: A&Ox4, THOUGH HAVING MULTIPLE EPISODES OF CONFUSION IN WHICH HE WILL VERBALIZE THAT HE IS FEELING CONFUSED AND DOES NOT KNOW WHY. BED ALARM FOR PATIENT SAFETY HE IS UNSTEADY ON HIS FEET AND RECEIVING HIGH DOSES OF FUROSEMIDE PUTTING HIM AT HIGHER RISK OF FALLING. FORGETS AND TRIES TO GET OUT OF BED WITHOUT ASSISTANCE. AT ONE POINT, PAVING BLOCK CUTTER FOUND HIM ATTEMPTING TO PLUG HIS BiOx INTO A POWER OUTLET. DIFFICULTY OBTAINING STRICT Is/Os D/T DIFFICULTY REMEMBERING TO URINATE INTO THE URINAL OR METERED CONTAINER. LABS DRAWN THIS MORNING; NO CRITICAL RESULTS RECEIVED. WILL REPORT TO ONCOMING RN.
--- NOTE | 2022-05-01 17:25 | NUR ---
SHIFT SUMMARY NO ACUTE CHANGES DURING SHIFT. PT ALERT TO SELF, INTERMITTENT CONFUSION NOTED DURING SHIFT, PT REDIRECTABLE, ABLE TO FOLLOW COMMANDS. PT STILL WITH SWELLING TO BLE, ELEVATED WHILE IN BED PER MD. PT REMAINS ON RA, SBA TO CHAIR. PT ON IV LASIX BID, SUFFICIENT URINARY OUTPUT. NO C/O PAIN.WILL CONTINUE TO MONITOR. CALL LIGHT WITHIN REACH.
--- NOTE | 2022-05-02 05:00 | NUR ---
PT PLEASANTLY CONFUSED AND IMPULSIVE THIS NOC. REORIENTED AND REMINDING PT OF REASON FOR HOSPITAL STAY. PT AT TIMES ADMITS TO BEING CONFUSED "I JUST FEEL FOGGY IN MY BRAIN". OFFER URINAL WHEN PT AWAKE AND ON ROUNDING. CONTINUE TO ELEVATE BLE TOLERATED.
[2022-05-02 05:41] LABS: Hematocrit 37.1 % (37.0-53.0); Hemoglobin 12.6 g/dL (13.5-17.5); Mean Corpuscular HGB 32.3 pg (26.0-34.0); Mean Corpuscular Volume 95 fL (80-100); Mean Platelet Volume 11.2 fL (9.1-12.4); Platelet Count 165 K/mm3 (150-400); RDW Coefficient Variation 14.8 % (11.7-14.2); RDW Standard Deviation 51.3 fL (35.1-46.3); White Blood Cell Count 7.13 K/mm3 (4.00-11.30)
[2022-05-02 06:30] LABS: Bilirubin, Total 2.5 mg/dL (0.1-1.0); Bun/Creatinine Ratio 33.5 (12.0-20.0); Calcium, Blood 8.8 mg/dL (8.5-10.1); Creatinine, Blood 2.45 mg/dL (0.60-1.20); Magnesium, Blood 2.9 mg/dL (1.6-2.4); Phosphorus, Blood 3.5 mg/dL (2.5-4.9); Potassium, Blood 3.9 mmol/L (3.5-5.5)
[2022-05-02 10:03] LABS: Source, Urine Voided
[2022-05-02 10:09] LABS: Appearance, Urine Clear (Clear); Bilirubin, Urine Neg (Neg); Blood, Urine Neg (Neg); Color, Urine Yellow (P-Yellow); Glucose Qualitative, Urine 3+ (Neg); Ketones, Urine Neg (Neg); Leukocyte Esterase, Urine Neg (Neg); Nitrite, Urine Neg (Neg); Protein, Urine 1+ (Neg); Specific Gravity, Urine 1.015 (1.003-1.022); Urobilinogen, Urine NORM (Normal)
--- NOTE | 2022-05-02 17:24 | NUR ---
SHIFT SUMMARY NO ACUTE CHANGES DURING SHIFT. PT ALERT TO SELF, INTERMITTENT CONFUSION, EASILY REDIRECTABLE. PT REMAINS ON RA, SBA TO CHAIR. PT STILL HAS BLE EDEMA, ELEVATING WHILE PT IN BED. IV LASIX BID. BP REMAINS SOFT, 90'S TO LOW 100'S. PT/OT EVAL COMPLETED. WILL CONTINUE TO MONITOR. CALL LIGHT WITHIN REACH.
[2022-05-03 06:10] LABS: BASOPHILS ABSOLUTE AUTO 0.02 K/mm3 (0.00-0.23); BASOPHILS PERCENT AUTO 0 % (0-2); EOSINOPHILS ABSOLUTE AUTO 0.02 K/mm3 (0.00-0.68); EOSINOPHILS PERCENT AUTO 0 % (0-6); Hematocrit 38.8 % (37.0-53.0); Hemoglobin 13.1 g/dL (13.5-17.5); IMMATURE GRAN ABSOLUTE AUTO 0.03 K/mm3 (0.00-0.10); IMMATURE GRAN PERCENT AUTO 0 % (0-1); LYMPHOCYTES ABSOLUTE AUTO 0.94 K/mm3 (0.84-5.20); LYMPHOCYTES PERCENT AUTO 12 % (21-46); MONOCYTES PERCENT AUTO 5 % (4-13); Mean Corpuscular HGB 32.3 pg (26.0-34.0); Mean Corpuscular HGB Conc 33.8 g/dL (31.5-36.5); Mean Corpuscular Volume 96 fL (80-100); Mean Platelet Volume 11.4 fL (9.1-12.4); NEUTROPHILS ABSOLUTE AUTO 6.15 K/mm3 (1.96-9.15); NEUTROPHILS PERCENT AUTO 81 % (41-73); Platelet Count 171 K/mm3 (150-400); RDW Coefficient Variation 15.2 % (11.7-14.2); RDW Standard Deviation 52.1 fL (35.1-46.3); Red Blood Cell Count 4.06 M/mm3 (4.30-5.90); White Blood Cell Count 7.56 K/mm3 (4.00-11.30)
--- NOTE | 2022-05-03 06:16 | NUR ---
PT CONTINUES TO BE IMPULSIVE AND CONFUSED AT TIMES BUT LESS THEN PREVIOUS NIGHT. CONTINUE TO ELEVATE BLE.
[2022-05-03 06:31] LABS: Albumin, Blood 3.1 g/dL (3.4-5.0); Anion Gap 8 mmol/L (6-16); Blood Urea Nitrogen 78 mg/dL (8-24); Bun/Creatinine Ratio 32.6 (12.0-20.0); CO2, Blood 25 mmol/L (21-32); Chloride, Blood 103 mmol/L (98-108); Creatinine, Blood 2.39 mg/dL (0.60-1.20); Glomerular Filtration Rate 27 (60-); Glucose, Blood 126 mg/dL (70-99); Phosphorus, Blood 3.7 mg/dL (2.5-4.9); Potassium, Blood 3.9 mmol/L (3.5-5.5); Sodium, Blood 136 mmol/L (136-145)
[2022-05-03] MEDS ORDERED: TORSE20 PO (14:29)
--- NOTE | 2022-05-03 16:29 | NUR ---
DISCHARGE A&OX2, COOPERATIVE WITH CARE, OCCASIONALLY CONFUSED. 2+ PITTING EDEMA IN BLE. PT DIURESING. DISCHARGE PACKET EXPLAINED AND EDUCATION GIVEN. PT AND SON DENY ANY QUESTIONS OR CONCERNS. PT LEFT WITH SON VIA WHEELCHAIR. NO ACUTE EVENTS DURING THIS SHIFT.
== END 2022-05-03 14:53 | disposition home health service (06) | DRG 291 ==
LOC: ER 13:03 → MEDS 16:35
PROVIDERS: Emergency Medicine; Family Medicine; Physician Assistant; ADMIT Student in an Organized Health Care Education/Training Program
DX: I13.0 Hypertensive heart and chronic kidney disease with heart failure and stage 1 through stage 4 chronic kidney disease, or unspecified chronic kidney disease (principal); I50.23 Acute on chronic systolic (congestive) heart failure; N17.0 Acute kidney failure with tubular necrosis; Z66 Do not resuscitate; Z28.21 Immunization not carried out because of patient refusal; E03.9 Hypothyroidism, unspecified; I25.10 Atherosclerotic heart disease of native coronary artery without angina pectoris; E83.51 Hypocalcemia; I48.91 Unspecified atrial fibrillation; N18.9 Chronic kidney disease, unspecified; Z95.0 Presence of cardiac pacemaker; Z95.5 Presence of coronary angioplasty implant and graft; Z98.890 Other specified postprocedural states; Z87.891 Personal history of nicotine dependence; Z88.5 Allergy status to narcotic agent; Z79.01 Long term (current) use of anticoagulants; Z79.890 Hormone replacement therapy; Z79.899 Other long term (current) drug therapy
CPT/HCPCS: 36415; 51798; 71046; 76770; 80047; 80053; 80069; 82570; 82947; 83735; 83880; 84100; 84484; 84540; 85014; 85025; 85027; 93005; 93010; 94760; 94762; 96365; 96372; 96375; 96376; 97110; 97116; 97161; 97166; 97530; 97535; 99284-25; A9270; G0378; J0610; J1644; J1940

== ENCOUNTER 2022-05-05 15:29 | Emergency (ER) | payer MEDICARE, OTHER ==
[~2022-05-05] VITALS: Ht 167.6 cm; Wt 81.7 kg
[~2022-05-05 15:29] MED LIST changes: +ATOR40TA PO; +ISOSORBIDE MONO30 MG PO; +JARDIANCE10 MG PO; +SOAANZ20 M3 PO; +SPIRONOLACTONE25 MG PO; +TAMSULOSIN HCL0.4 M1 PO; +TORSE20 PO
[2022-05-05 16:05] LABS: BASOPHILS ABSOLUTE AUTO 0.01 K/mm3 (0.00-0.23); BASOPHILS PERCENT AUTO 0 % (0-2); EOSINOPHILS ABSOLUTE AUTO 0.01 K/mm3 (0.00-0.68); EOSINOPHILS PERCENT AUTO 0 % (0-6); Hematocrit 43.1 % (37.0-53.0); Hemoglobin 14.1 g/dL (13.5-17.5); IMMATURE GRAN ABSOLUTE AUTO 0.03 K/mm3 (0.00-0.10); IMMATURE GRAN PERCENT AUTO 0 % (0-1); LYMPHOCYTES ABSOLUTE AUTO 0.96 K/mm3 (0.84-5.20); LYMPHOCYTES PERCENT AUTO 11 % (21-46); MONOCYTES ABSOLUTE AUTO 0.45 K/mm3 (0.16-1.47); MONOCYTES PERCENT AUTO 5 % (4-13); Mean Corpuscular HGB 32.1 pg (26.0-34.0); Mean Corpuscular HGB Conc 32.7 g/dL (31.5-36.5); Mean Corpuscular Volume 98 fL (80-100); Mean Platelet Volume 11.6 fL (9.1-12.4); NEUTROPHILS ABSOLUTE AUTO 7.16 K/mm3 (1.96-9.15); NEUTROPHILS PERCENT AUTO 83 % (41-73); Platelet Count 174 K/mm3 (150-400); RDW Coefficient Variation 15.3 % (11.7-14.2); RDW Standard Deviation 54.5 fL (35.1-46.3); Red Blood Cell Count 4.39 M/mm3 (4.30-5.90); White Blood Cell Count 8.62 K/mm3 (4.00-11.30)
[2022-05-05 16:20] LABS: Albumin, Blood 3.6 g/dL (3.4-5.0); Albumin/Globulin Ratio 1.2 (0.8-1.8); Bilirubin, Total 2.7 mg/dL (0.1-1.0); Calcium, Blood 9.1 mg/dL (8.5-10.1); Creatinine, Blood 2.57 mg/dL (0.60-1.20); Potassium, Blood 4.2 mmol/L (3.5-5.5); Total Protein, Blood 6.6 g/dL (6.4-8.2)
[2022-05-05] MEDS ORDERED: METO2.5 PO (22:42)
== END 2022-05-05 23:57 | disposition home or self-care (01) ==
LOC: ER 15:29
PROVIDERS: Physician Assistant
DX: I11.0 Hypertensive heart disease with heart failure (principal); I50.9 Heart failure, unspecified; R41.0 Disorientation, unspecified; Z79.890 Hormone replacement therapy; Z79.899 Other long term (current) drug therapy; Z95.0 Presence of cardiac pacemaker; Z95.5 Presence of coronary angioplasty implant and graft; Z88.5 Allergy status to narcotic agent
CPT/HCPCS: 36415; 71046; 80053; 83880; 84484; 85025; 96374; 99284-25; A9270; J1940